=== PATIENT | male | born 1995 | race Caucasian/White ===

== ENCOUNTER 2019-05-26 15:47 | Emergency (ER) | payer OTHER ==
[~2019-05-26] VITALS: Ht 170.2 cm; Wt 55.7 kg
[~2019-05-26 15:47] MED LIST: DICY10CA40 PO; ONDA4TAB14 PO
[2019-05-26 15:51] VITALS: Ht 170.2 cm; Wt 55.7 kg
[2019-05-26] MEDS ORDERED: FAMOTIDINE 20 MG INJ IV STA (17:52)
[2019-05-26] MEDS ORDERED: LIDOCAINE/MYLANTA 40 ML BTL PO STA (17:52)
[2019-05-26] MEDS ORDERED: SOD CHLORIDE 0.9% 1,000 ML IV STA (17:52)
[2019-05-26] MEDS ORDERED: BELLADONNA/PHENOBARBITAL TAB PO STA (17:52)
[2019-05-26] MEDS ORDERED: ONDANSETRON 4 MG INJ IV STA (17:52)
[2019-05-26] MEDS ORDERED: IOHEXOL 300MG/ML 150 ML BTL ONE (19:27)
[2019-05-26] MEDS ORDERED: SOD CHLORIDE 0.9% 100 ML ONE (19:27)
[2019-05-26 21:15] VITALS: BP 137/94; PULSE 80; RESP 18
== END 2019-05-26 21:17 | disposition home or self-care (01) ==
LOC: FTE 15:47 → EDBD 15:47 → FTE 21:17
DX: R10.9 Unspecified abdominal pain (principal); R11.2 Nausea with vomiting, unspecified; R19.7 Diarrhea, unspecified
CPT/HCPCS: 36415; 74177; 76705; 80053; 81001; 83690; 85025; 96361; 96374; 96375; 99285; J2405; J7030; Q9967